=== PATIENT | male | born 1965 | race Hispanic/Latino ===

== ENCOUNTER 2019-04-10 11:08 | Emergency (ER) | payer OTHER | END 2019-04-10 11:59 | disposition home or self-care (01) | LOC: EDH 11:08 | DX: S39.012A Strain of muscle, fascia and tendon of lower back, initial encounter (principal); Z72.0 Tobacco use; X50.0XXA Overexertion from strenuous movement or load, initial encounter; Y93.89 Activity, other specified; Y92.89 Other specified places as the place of occurrence of the external cause; Y99.8 Other external cause status | CPT/HCPCS: 99281 ==

== ENCOUNTER 2020-03-19 18:47 | Emergency (ER) | payer SELFPAY ==
[2020-03-19] MEDS ORDERED: INSULIN HUMULIN R 100 UNIT/ML 3ML ONE ×2 (19:14→19:22)
[2020-03-19 19:26] LABS: BASOPHILS % (AUTO) 0.4 % (0.0-5.0); EOSINOPHILS % (AUTO) 2.2 % (0.0-8.0); HEMATOCRIT 43.9 % (42-54); LYMPHOCYTES % (AUTO) 16.2 % (21.0-51.0); MEAN CORPUSCULAR HEMOGLOBIN 32.9 pg (27.0-33.0); MEAN CORPUSCULAR HGB CONC 36.2 g/dL (32.0-36.0); MEAN CORPUSCULAR VOLUME 90.7 fL (79-99); MONOCYTES % (AUTO) 9.4 % (3.0-13.0); NEUTROPHILS % (AUTO) 71.4 % (40.0-77.0); PLATELET COUNT (AUTO) 287 K/uL (130-400); RED BLOOD CELL COUNT(AUTO) 4.84 MIL/uL (4.50-6.20); RED CELL DISTRIBUTION WIDTH 11.9 % (11.0-15.5); WHITE BLOOD COUNT (AUTO) 11.4 K/uL (4.8-10.8)
[2020-03-19 19:29] LABS: CREATININE 2.6 mg/dL (0.5-1.5); POTASSIUM 4.1 mmol/L (3.5-5.1)
[2020-03-19 19:34] LABS: ALBUMIN 4.8 g/dL (3.5-5.0); BILIRUBIN,TOTAL 1.3 mg/dL (0.2-1.0); TOTAL PROTEIN, SERUM 9.1 g/dL (6.0-8.3)
[2020-03-19] MEDS ORDERED: MAGNESIUM OXIDE 400 MG TABLET PO ONE (20:07)
[2020-03-19 20:19] LABS: APPEARANCE,URINE Cloudy (CLEAR); BILIRUBIN,URINE Negative (NEGATIVE); COLOR,URINE Dark Yellow (YELLOW); GLUCOSE, URINE (UA) >=1000 mg/dL (NEGATIVE); KETONES,URINE Trace mg/dL (NEGATIVE); LEUKOCYTE ESTERASE ,URINE Negative (NEGATIVE); NITRATE,URINE Negative (NEGATIVE); OCCULT BLOOD,URINE Negative (NEGATIVE); PROTEIN,URINE POS 2+ mg/dL (NEGATIVE)
[2020-03-19 20:28] LABS: RBC,URINE None Seen /HPF (0-1)
[2020-03-19 20:29] LABS: BACTERIA,URINE Few /HPF (None Seen); SQUAMOUS EPITHELIAL CELL,UR None Seen /HPF (0-2)
== END 2020-03-19 22:34 | disposition home or self-care (01) ==
LOC: EDH 18:47
DX: E11.65 Type 2 diabetes mellitus with hyperglycemia (principal); N28.9 Disorder of kidney and ureter, unspecified; E83.42 Hypomagnesemia; Z72.0 Tobacco use
CPT/HCPCS: 36415; 80053; 81001; 82948 ×2; 83735; 85025; 93005; 96361; 96374; 99284; J1815 ×2

== ENCOUNTER 2021-12-29 06:47 | Emergency (ER) | payer OTHER ==
[~2021-12-29] VITALS: Ht 170.2 cm; Wt 90.7 kg
[2021-12-29 07:10] LABS: BASOPHILS % (AUTO) 0.3 % (0.0-5.0); EOSINOPHILS % (AUTO) 1.1 % (0.0-8.0); HEMATOCRIT 43.3 % (42-54); LYMPHOCYTES % (AUTO) 19.9 % (21.0-51.0); MEAN CORPUSCULAR HEMOGLOBIN 31.8 pg (27.0-33.0); MEAN CORPUSCULAR HGB CONC 35.3 g/dL (32.0-36.0); MONOCYTES % (AUTO) 7.6 % (3.0-13.0); NEUTROPHILS % (AUTO) 70.7 % (40.0-77.0); PLATELET COUNT (AUTO) 241 K/uL (130-400); RED BLOOD CELL COUNT(AUTO) 4.81 MIL/uL (4.50-6.20); RED CELL DISTRIBUTION WIDTH 13.2 % (11.0-15.5); WHITE BLOOD COUNT (AUTO) 12.8 K/uL (4.8-10.8)
[2021-12-29 07:28] LABS: CREATININE 0.7 mg/dL (0.5-1.5); POTASSIUM 4.3 mmol/L (3.5-5.1)
[2021-12-29 07:29] LABS: INR 0.93 (0.85-1.15); PROTHROMBIN TIME 9.8 SEC (9.6-11.6)
[2021-12-29 07:30] LABS: PARTIAL THROMBOPLASTIN TIME 23.2 SEC (26.3-35.5)
[2021-12-29 07:38] LABS: ALBUMIN 3.4 g/dL (3.5-5.0); BILIRUBIN,TOTAL 0.6 mg/dL (0.2-1.0); TOTAL PROTEIN, SERUM 6.8 g/dL (6.0-8.3)
[2021-12-29 07:50] LABS: APPEARANCE,URINE Clear (CLEAR); BILIRUBIN,URINE Negative (NEGATIVE); COLOR,URINE Yellow (YELLOW); GLUCOSE, URINE (UA) Negative (NEGATIVE); KETONES,URINE Negative (NEGATIVE); LEUKOCYTE ESTERASE ,URINE Negative (NEGATIVE); NITRATE,URINE Negative (NEGATIVE); OCCULT BLOOD,URINE Negative (NEGATIVE); PROTEIN,URINE Negative (NEGATIVE); UROBILINOGEN,URINE 0.2 mg/dL (0.2-1.0)
[2021-12-29] MEDS ORDERED: METF-444 PO (07:55)
[2021-12-29] MEDS ORDERED: MORPHINE 4 MG SYG ONE (08:11)
[2021-12-29] MEDS ORDERED: ONDANSETRON 4MG INJ ONE (08:11)
[2021-12-29] MEDS ORDERED: IOHEXOL-350 75 ML VIAL IV ONE (08:58)
[2021-12-29] MEDS ORDERED: 0.9% NACL 500ML IV.SOLN 500 ML IV ONE (09:22)
[2021-12-29] MEDS ORDERED: KETOROLAC 30MG VIAL (30MG/ML) ONE (09:22)
[2021-12-29] MEDS ORDERED: IBUP-2070 PO (10:20)
[2021-12-29 10:25] VITALS: BP 144/86
== END 2021-12-29 10:30 | disposition home or self-care (01) ==
LOC: EDH 06:47
DX: S20.211A Contusion of right front wall of thorax, initial encounter (principal); S40.022A Contusion of left upper arm, initial encounter; M25.522 Pain in left elbow; M25.532 Pain in left wrist; W11.XXXA Fall on and from ladder, initial encounter; Y93.89 Activity, other specified; Y92.89 Other specified places as the place of occurrence of the external cause; Y99.8 Other external cause status
CPT/HCPCS: 36415; 70460; 71045; 71260; 72125; 73090; 80053; 81003; 84484; 85025; 85610; 85730; 93005; 96374; 96375; 99285; J1885; J2270; J2405; J7040; Q9967

== ENCOUNTER 2023-10-29 10:52 | Emergency (ER) | payer BC ==
[~2023-10-29] VITALS: Ht 170.2 cm; Wt 92.5 kg
[~2023-10-29 10:52] MED LIST: CEPH500B PO; IBUP-2070 PO; METF-444 PO
[2023-10-29] MEDS: TETRACAINE HCL 0.5% 4 ML OPHTH SOLN OP SCH (11:08)
[2023-10-29] MEDS: FLUORESCEIN SODIUM 1 STRIP STRIP OP SCH (11:08)
[2023-10-29 11:13] VITALS: BP 150/83; PULSE 78; RESP 12
[2023-10-29] MEDS ORDERED: IBUP-2077 PO (11:26)
[2023-10-29] MEDS: ERYTHROMYCIN BASE 0.5% OPHTH OINT 1 GM TUBE OU SCH (11:27)
[2023-10-29] MEDS: ERYTHROMYCIN BASE 0.5% OPHTH OINT 1 GM TUBE ONE (11:27)
[2023-10-29] MEDS: NA BORATE/BORIC AC/H2O/NACL 120 ML OPHTH IRRIG SOLN OP SCH (11:27)
[2023-10-29] MEDS: IBUPROFEN 800 MG TAB PO ONE (11:29)
[2023-10-29] MEDS ORDERED: ERYTHROMYCIN BASE 0.5% OPHTH OINT 1 GM TUBE OU SCH (11:30)
== END 2023-10-29 11:46 | disposition home or self-care (01) ==
LOC: EDH 10:52
DX: S00.212A Abrasion of left eyelid and periocular area, initial encounter (principal); E11.9 Type 2 diabetes mellitus without complications; Z79.84 Long term (current) use of oral hypoglycemic drugs; X58.XXXA Exposure to other specified factors, initial encounter; Y93.89 Activity, other specified; Y92.89 Other specified places as the place of occurrence of the external cause; Y99.8 Other external cause status
CPT/HCPCS: 99282